=== PATIENT | male | born 1975 | race Caucasian/White ===

== ENCOUNTER 2018-10-29 16:10 | Observation (INO) ==
--- NOTE | 2018-10-29 16:44 | Emergency Department Note ---
Disposition Clinical Impression: Left-sided weakness Chest pain Qualifiers: Chest pain type: unspecified Qualified Code(s): R07.9 - Chest pain, unspecified Disposition: Admitted As Inpatient Condition: Good Referrals: Constantine Serrato MD [Primary Care Provider] - Forms: ED Satisfaction Letter Time of Disposition: 18:07 General Adult HPI - General Stated complaint: Neuro symptoms,CP Time Seen by Provider: 10/29/18 16:20 Source: patient Mode of arrival: ambulatory Limitations: no limitations Nursing Notes Reviewed: Yes Vital Signs Reviewed: Yes - History of Present Illness HPI Narrative: Patient is a 43-year-old male presenting with weakness of the left side. Patient has known history of stroke proximally 1 year ago, since this time he has had residual left-sided weakness in the upper lower extremity as well as a facial droop on the left side with slurred speech. Starting yesterday afternoon, patient began to notice increased slurred speech as well as increased weakness in the left arm and left leg. He states that there is been slight decrease in sensation from his baseline as well on the left side. He does state that he has frequent falls secondary to imbalance following the stroke, last fall was yesterday, and he noticed following this that his symptoms progr essively worsened. Per his mother in the room, she does state that he notes that he has increased slurred speech from his baseline as well as increased left-sided weakness. He also states he has chest pain, described to be sharpshooting on the right side without radiation. He denies any associated shortness of breath. He does have some nausea but no vomiting. No diaphoresis. He denies similar symptoms in the past. He does have an esophageal stent, secondary to residual effects from his stroke approximately one year ago, however he is currently handling solids and liquids without difficulty. - Related Data Previous Rx's Medication Instructions Recorded methylPREDNISolone [Medrol] 4 mg PO TAPER #21 tablet 12/30/15 traMADol [Ultram] 50 mg PO QID PRN #12 tablet 12/30/15 Lisinopril [Zestril] 10 mg PO DAILY #30 tablet 02/17/17 amLODIPine [Norvasc] 10 mg PO DAILY #30 tablet 02/17/17 Allergies Allergy/AdvReac Type Severity Reaction Status Date / Time No Known Allergies Allergy Verified 03/11/15 17:14 All systems ED: reviewed and negative except as stated. Review of Systems: As Per HPI Constitutional: Denies: fever, chills ENT ED: Denies: congestion Cardiovascular: Reports: chest pain. Denies: palpitations, dyspnea on exertion, syncope Respiratory: Denies: cough, dyspnea, wheezes, sputum production Gastrointestinal: Reports: nausea. Denies: abdominal pain, diarrhea Genitourinary: Denies: urgency Musculoskeletal: Denies: back pain Integumentary: Denies: rash Neurological: Reports: weakness, numbness. Denies: headache, paresthesias, confusion Hematological/Lymphatic: Denies: easy bleeding Past Medical History - Past Medical History Attestation: Yes The following information was validated with the patient. Source: patient Medical history: Reports: other (kidney issues, BP issues) Surgical history: Reports: non-contributory Psychiatric history: Reports: no psych history - Social History Smoking Status: Current every day smoker Smokeless Tobacco Status: No Alcohol use: Reports: occasionally Drug use: Reports: none Physical Exam - General Limitations: no limitations General appearance: alert, in no apparent distress - Head Head exam: atraumatic, normocephalic, normal inspection - Eye Eye exam: Present: normal appearance, PERRL, EOMI - ENT ENT exam: normal exam, normal oropharynx, mucous membranes moist - Neck Neck exam: Present: normal inspection, full ROM, trachea midline - Chest Chest inspection: Present: normal inspection, symmetric chest wall rise - Respiratory Respiratory exam: Present: normal lung sounds bilaterally - Cardiovascular Cardiovascular exam: Present: regular rate, normal rhythm, normal heart sounds - Abdominal Exam Abdominal exam: Present: soft, Non-Tender, other (Tube placement to the midepigastric region, appears without erythema or signs of infection). Absent: tenderness, distention, guarding, rebound, rigidity - Extremities Exam Extremities exam: Present: normal inspection, full ROM. Absent: tenderness, pedal edema - Neurological Exam Neurological exam: Present: alert, oriented X3 - Expanded Neurological Exam Patient oriented to: Present: person, place, time Speech: Present: fluid speech Cranial nerves: EOM function (II, III, IV, ): Normal, facial sensation (V): Abnormal Left, facial palsy (VII): Abnormal Left, spinal accessory function (XI): Normal, tongue deviation (XII): Normal Cerebellar function: finger to nose: Abnormal Left (Unable to perform [id number] secondary to weakness on the left side) Motor strength - LUE: 2/5 Motor strength - RUE: 5/5 Motor strength - LLE: 2/5 Motor strength - RLE: 5/5 Upper motor neuron exam: pronator drift: Present on left (Secondary to weakness on the left side) Sensory exam upper extremity: light touch: Abnormal Left (Decreased on the left side) Sensory exam lower extremity: light touch: Abnormal Left (Decreased on the left side) Coma Scale Eye Opening: Spontaneous Coma Scale Motor Response: Obeys Commands Coma Scale Verbal Response: Oriented Coma Scale Total: 15 - Psychiatric Psychiatric exam: Present: normal affect, normal mood - Skin Skin exam: Present: warm, dry, intact, normal color Course Vital Signs Temperature 97.9 F 10/29/18 16:32 Pulse Rate 71 10/29/18 16:32 Respiratory Rate 16 10/29/18 16:32 Blood Pressure 140/96 10/29/18 16:32 O2 Sat by Pulse Oximetry 98 10/29/18 16:32 Temperature 97.9 F 10/29/18 16:32 Pulse Rate 64 10/29/18 18:03 Respiratory Rate 14 10/29/18 18:03 Blood Pressure 132/91 10/29/18 18:03 O2 Sat by Pulse Oximetry 100 10/29/18 18:03 Oxygen Delivery Oxygen Delivery Room Air Medical Decision Making - MDM Narrative Medical decision making narrative: Patient is a 43-year-old male presenting with left-sided weakness. Patient has known history of stroke approximately one year ago with residual left-sided weakness, numbness to the upper, lower extremities as well as the face. Per patient as well as family in the room, patient has had increase in weakness approximately 26 hours ago. On arrival, patient is NIH of 7, feels though this is most likely chronic in nature, as all deficiencies are noted on the left side. Do not have a baseline for comparison. GCS of 15. CBC, BMP as well as chest x-ray and EKG are all within normal limits, no acute ischemic changes were noted. CT of the head shows no acute intracranial changes. Patient has remained stable while here in the ER. Patient is not a TPA candidate. Patient also states he has been having intermittent chest pain, troponin is normal with negative EKG showing no acute ischemic changes. Her troponin will need to be trended. This point in time, further ruminations and evaluation, patient will be admitted to the hospital service. Patient agrees with disposition of dimas ulloa. - Medical Records Medical records reviewed: Yes I reviewed the patient's medical records. - Lab Data Lab results reviewed: Yes I reviewed the patient's lab results. Result diagrams: 10/29/18 17:27 10/29/18 17:09 Lab Results 10/29/18 10/29/18 10/29/18 Range/Units 17:09 17:27 17:27 WBC 11.4 H (4.3-11.1) K/mcL RBC 4.88 (4.19-5.50) M/mcL Hgb 14.9 (12.9-16.9) g/dL Hct 44.3 (37.5-50.1) % MCV 90.8 (83.0-100.0) fL MCH 30.5 (28.0-33.3) pg MCHC 33.6 (31.6-35.5) g/dL RDW 12.2 (11.5-14.5) % Plt Count 232 (140-400) K/mcL MPV 11.5 (9.4-12.4) fL PT 12.4 H (9.4-12.1) Seconds INR 1.1 APTT 30.2 (26.0-36.0) Seconds Sodium 138 (136-145) mEq/L Potassium 3.8 (3.5-5.1) mEq/L Chloride 105 (98-107) mEq/L Carbon Dioxide 24 (23-29) mEq/L BUN 14 (6-20) mg/dL Creatinine 1.23 (0.70-1.30) mg/dL Est GFR ( Amer) > 60 (> 60) Est GFR (Non-Af Amer) > 60 (> 60) BUN/Creatinine Ratio 11 (6-26) Glucose 89 (70-105) mg/dL Calculated Osmolality 286 (280-300) Calcium 9.4 (8.6-10.3) mg/dL Troponin I < 0.03 (< 0.04) ng/mL - Radiology Data Radiology results reviewed: Yes I reviewed the patient's radiology results. Chest X-Ray 10/29/18 16:39 IMPRESSION: No acute cardiopulmonary abnormality. D/ / Flaco Mora MD / Flaco Mora MD Interpreting Provider: Flaco Mora MD Head CT 10/29/18 16:39 IMPRESSION: 1. No acute intracranial abnormality. 2. Chronic findings as above. D/ / Benitez Palafox MD / Benitez Palafox MD Interpreting Provider: Benitez Palafox MD - EKG Data EKG #2 EKG attestation: Yes I reviewed and interpreted this EKG. EKG results narrative: EKG performed at 1654 with ventricular rate of 72, regular rhythm, normal axis, intervals within normal limits, no ST segment elevation, depression, there is T- wave inversion in lead 3, no old EKG for comparison. S.B.A.R. - S.Jeanne.ALatha Situation: Demographics, MOA Background: Presenting Complaint, Relevant PMH, Meds, & Allergies Assessment: Vital Signs, Course and respsone to treatment, Exam Concerns, Patient/Family Expectation, Pertinant Lab Results, Outstanding Labs Recommendation: Barrier(s) to disposition, Recommendation based on pending studies, treatments, or consults S.[email or web address].RChris Report Given to: Dr. Vargas Cosme Repor Time: 18:23 (accepted) NIH Stroke Scale - Level of Consciousness LOC: Alert - LOC Questions LOC Questions: Answers both correctly - LOC Commands LOC Commands: Performs both correctly - Best Gaze Best Gaze: Normal - Visual Visual: No visual loss - Facial Palsy Facial Palsy: Minor asymmetry on smiling, flattened nasolabial fold - Motor Arms Motor Arm-Left: Some effort against gravity, limb drifts to bed Motor Arm-Right: No drift for 10 seconds - Motor Legs Motor Leg-Left: Drift, does NOT hit bed Motor Leg-Right: No drift for 5 seconds - Limb Ataxia Limb Ataxia: Present in ONE limb - Sensory Sensory: Mild to moderate loss, "not as sharp" - Best Language Best Language: No aphasia - Dysarthria Dysarthria: Mild, slurs some words - Extinction and Inattention Extinction and Inattention: Normal - NIHSS Total Score NIHSS Total Score: 7
[2018-10-29 17:41] LABS: Hematocrit 44.3 % (37.5-50.1); Hemoglobin 14.9 g/dL (12.9-16.9); Mean Corpuscular HGB Conc 33.6 g/dL (31.6-35.5); Mean Corpuscular Hemoglobin 30.5 pg (28.0-33.3); Mean Corpuscular Volume 90.8 fL (83.0-100.0); Mean Platelet Volume 11.5 fL (9.4-12.4); Platelet Count 232 K/mcL (140-400); Red Blood Count 4.88 M/mcL (4.19-5.50); Red Cell Distribution Width 12.2 % (11.5-14.5)
--- NOTE | 2018-10-29 17:46 | Emergency Department Note ---
Disposition Clinical Impression: Left-sided weakness, Chest pain Disposition: Admitted As Inpatient Condition: Good Referrals: Constantine Serrato MD [Primary Care Provider] - Forms: ED Satisfaction Letter General Adult HPI - General Chief complaint: ED Neuro Symptoms/Deficit Stated complaint: Neuro symptoms,CP Time Seen by Provider: 10/29/18 16:20 Source: patient Mode of arrival: ambulatory Limitations: no limitations - History of Present Illness Pain Scale: 0 - Related Data Previous Rx's Medication Instructions Recorded methylPREDNISolone [Medrol] 4 mg PO TAPER #21 tablet 12/30/15 traMADol [Ultram] 50 mg PO QID PRN #12 tablet 12/30/15 Lisinopril [Zestril] 10 mg PO DAILY #30 tablet 02/17/17 amLODIPine [Norvasc] 10 mg PO DAILY #30 tablet 02/17/17 Allergies Allergy/AdvReac Type Severity Reaction Status Date / Time No Known Allergies Allergy Verified 03/11/15 17:14 Constitutional: Denies: fever, chills ENT ED: Denies: congestion Cardiovascular: Reports: chest pain. Denies: palpitations, dyspnea on exertion, syncope Respiratory: Denies: cough, dyspnea, wheezes, sputum production Gastrointestinal: Reports: nausea. Denies: abdominal pain, diarrhea Genitourinary: Denies: urgency Musculoskeletal: Denies: back pain Integumentary: Denies: rash Neurological: Reports: weakness, numbness. Denies: headache, paresthesias, confusion Hematological/Lymphatic: Denies: easy bleeding Past Medical History - Past Medical History Medical history: Reports: other (kidney issues, BP issues) Surgical history: Reports: non-contributory Psychiatric history: Reports: no psych history - Social History Smoking Status: Current every day smoker Smokeless Tobacco Status: No Alcohol use: Reports: occasionally Drug use: Reports: none Physical Exam - General Limitations: no limitations General appearance: alert, in no apparent distress Course Vital Signs Temperature 97.9 F 10/29/18 16:32 Pulse Rate 71 10/29/18 16:32 Respiratory Rate 16 10/29/18 16:32 Blood Pressure 140/96 10/29/18 16:32 O2 Sat by Pulse Oximetry 98 10/29/18 16:32 Temperature 97.9 F 10/29/18 16:32 Pulse Rate 64 10/29/18 18:03 Respiratory Rate 14 10/29/18 18:03 Blood Pressure 132/91 10/29/18 18:03 O2 Sat by Pulse Oximetry 100 10/29/18 18:03 Oxygen Delivery Oxygen Delivery Room Air Medical Decision Making - Lab Data Result diagrams: 10/29/18 17:27 10/29/18 17:09 Lab Results 10/29/18 10/29/18 10/29/18 Range/Units 17:09 17:27 17:27 WBC 11.4 H (4.3-11.1) K/mcL RBC 4.88 (4.19-5.50) M/mcL Hgb 14.9 (12.9-16.9) g/dL Hct 44.3 (37.5-50.1) % MCV 90.8 (83.0-100.0) fL MCH 30.5 (28.0-33.3) pg MCHC 33.6 (31.6-35.5) g/dL RDW 12.2 (11.5-14.5) % Plt Count 232 (140-400) K/mcL MPV 11.5 (9.4-12.4) fL PT 12.4 H (9.4-12.1) Seconds INR 1.1 APTT 30.2 (26.0-36.0) Seconds Sodium 138 (136-145) mEq/L Potassium 3.8 (3.5-5.1) mEq/L Chloride 105 (98-107) mEq/L Carbon Dioxide 24 (23-29) mEq/L BUN 14 (6-20) mg/dL Creatinine 1.23 (0.70-1.30) mg/dL Est GFR ( Amer) > 60 (> 60) Est GFR (Non-Af Amer) > 60 (> 60) BUN/Creatinine Ratio 11 (6-26) Glucose 89 (70-105) mg/dL Calculated Osmolality 286 (280-300) Calcium 9.4 (8.6-10.3) mg/dL Troponin I < 0.03 (< 0.04) ng/mL Attestation Statement - Attestation Attestation: I examined this patient and my medical decision-making was reviewed with the Resident Physician. I agree with the documented findings, disposition and treatment plan as described except to the extent set forth below. Patient to the ED with left-sided weakness and slurred speech. Onset yesterday, over 24 hours ago. Patient reports that he feels weaker than normal. Patient's had a prior stroke with left-sided weakness. On exam he is in no acute distress. He does have a drift to the right arm and leg. Sensory deficit as well. It is unclear how chronic or acute this is. Plan. Stroke workup. His NIH scale is 7. We will check CT head basic labs. Symptom onset over 24 hours ago. He is not a TPA candidate. Likely admission. Workup unremarkable. Patient admitted for further neuro eval. Chest X-Ray 10/29/18 16:39 IMPRESSION: No acute cardiopulmonary abnormality. D/ / Flaco Mora MD / Flaco Mora MD Interpreting Provider: Flaco Mora MD Head CT 10/29/18 16:39 IMPRESSION: 1. No acute intracranial abnormality. 2. Chronic findings as above. D/ / Benitez Palafox MD / Benitez Palafox MD Interpreting Provider: Benitez Palafox MD
[2018-10-29 17:49] LABS: INR 1.1; Prothrombin Time 12.4 Seconds (9.4-12.1)
[2018-10-29 17:52] LABS: Activated Partial Thrombo Time 30.2 Seconds (26.0-36.0)
[2018-10-29 17:54] LABS: BUN/Creatinine Ratio 11 (6-26); Blood Urea Nitrogen 14 mg/dL (6-20); Calcium 9.4 mg/dL (8.6-10.3); Carbon Dioxide 24 mEq/L (23-29); Chloride 105 mEq/L (98-107); Glucose 89 mg/dL (70-105); Osmolality,Calculated 286 (280-300); Potassium 3.8 mEq/L (3.5-5.1); Sodium 138 mEq/L (136-145); eGFR For Non-African Americans > 60 (> 60)
[2018-10-29 17:55] LABS: Troponin I < 0.03 ng/mL (< 0.04)
[2018-10-30] MEDS ORDERED: Naloxone 0.4 MG/ML INJ IVP PRN (04:32)
[2018-10-30] MEDS ORDERED: 0.9 % Sodium Chloride 1,000 ML IVC ONE (04:36)
[2018-10-30] MEDS: *HR* Heparin 5,000 UNIT/ML VIAL SQ SCH ×2 (05:02→17:40)
[2018-10-30 05:44] LABS: Hematocrit 43.1 % (37.5-50.1); Hemoglobin 14.5 g/dL (12.9-16.9); Mean Corpuscular HGB Conc 33.6 g/dL (31.6-35.5); Mean Corpuscular Hemoglobin 30.5 pg (28.0-33.3); Mean Corpuscular Volume 90.7 fL (83.0-100.0); Mean Platelet Volume 11.5 fL (9.4-12.4); Platelet Count 220 K/mcL (140-400); Red Blood Count 4.75 M/mcL (4.19-5.50)
[2018-10-30 06:06] LABS: BUN/Creatinine Ratio 11 (6-26); Blood Urea Nitrogen 15 mg/dL (6-20); Calcium 9.5 mg/dL (8.6-10.3); Carbon Dioxide 25 mEq/L (23-29); Chloride 103 mEq/L (98-107); Glucose 109 mg/dL (70-105); Osmolality,Calculated 287 (280-300); Potassium 3.8 mEq/L (3.5-5.1); Sodium 138 mEq/L (136-145); Troponin I < 0.03 ng/mL (< 0.04); eGFR For Non-African Americans 57 (> 60)
--- NOTE | 2018-10-30 07:18 | Internal Med History&Physical ---
Date of Encounter: 10/30/18 Time of Encounter: 03:59 Internal Medicine - H&P: HPI Chief complaint: CVA Admitted From: Emergency Dept Plans for Post Hospital Care: Home History of present illness: Mr. Kearns is a 43 year old male Patient presented to the ER with left sided weakness and left sided facial droop. He has a significant history of left sided weakness from previous stroke about 1 year ago, however his noticed that he was slurring his speech more than he typically dose, and he confirmed that he had decreased sensation on the left side. He has experienced falls due to his weakness as well, but denies hitting his head. In the ER patient's initial vital signs were within normal limits, CBC and BMP also did not reveal any acute abnormalities. Chest x-ray showed no acute abnormality, head CT was also negative for acute intracranial abnormality. He does have chronic changes as detailed below. The ER did not call stroke alert, as patient's symptoms had occurred greater than 24 hours prior to presentation. He was admitted to the hospital floor for further management. Upon my evaluation, patient confirms the history above. I asked him about the chest pain the he had reported to the ER, and he stated that he felt that it was more of an acid reflux type pain. The pain did not radiate. He otherwise denied chest pain, abdominal pain, nausea, vomiting, diarrhea and constipation. He has a G-tube that was placed after his previous stroke but it is not in use. He says that he has a soreness feeling around the site. It is to be removed on December 03. Nursing attempted bed side dysphagia screen which the patient failed. He is a full code. I asked the patient about his family medical history. He stated that both sides of his family struggle with alcoholism, and his father's side of the family also dealt with diabetes and heart attacks. Past Med Surg Social Fam HX - Past Medical History Medical history: CVA, hyperlipidemia, other Additional medical history: Peg Tube, wears brace on left leg Psychiatric history: no psych history - Past Surgical History Surgical History: non-contributory Additional surgical history: PEG placement - Social History Smoking Status: Current every day smoker Smokeless Tobacco Status: No Alcohol use: occasionally Drug use: none - Family History Mother Living Status: Still Living Hx Family Autoimmune Disorders: Yes (RA) Internal Medicine - H&P: Meds methylPREDNISolone [Medrol] 4 mg PO TAPER #21 tablet 12/30/15 [Rx] traMADol [Ultram] 50 mg PO QID PRN #12 tablet 12/30/15 [Rx] Lisinopril [Zestril] 10 mg PO DAILY #30 tablet 02/17/17 [Rx] amLODIPine [Norvasc] 10 mg PO DAILY #30 tablet 02/17/17 [Rx] Allergy/AdvReac Type Severity Reaction Status Date / Time No Known Allergies Allergy Verified 03/11/15 17:14 All Systems PM: A 10-system review of systems was performed and is negative for pertinent findings except as documented above in the HPI. - Constitutional Vitals: Temp Pulse Resp BP Pulse Ox 98.5 F 72 15 137/99 97 10/30/18 07:01 10/30/18 07:01 10/30/18 07:01 10/30/18 07:01 10/30/18 07:01 General appearance: Present: cooperative, A&O X 3, pleasant, no acute distress, answers questions appropriately Exam: - - Head Head exam: Present: normal inspection - Eye Eye exam: Present: EOMI, normal appearance - Neck Neck exam general surgery: Present: full ROM. Absent: tenderness - Respiratory Respiratory exam: Present: CTAB. Absent: rales, respiratory distress, rhonchi, wheezes - Cardiovascular Cardiovascular exam: Present: RRR. Absent: diastolic murmur, systolic murmur - GI/Abdominal GI/Abdominal exam: Present: normal bowel sounds, soft. Absent: tenderness - Extremities Exam Extremities exam: Present: warm, radial pulses palpable and symmetrical. Absent: pedal edema, tenderness - Neurological Exam Neurological exam: Present: motor sensory deficit, facial droop. Absent: no focal deficits, strengths equal and symetr throughout, speech deficit Additional comments: Patient's left upper and lower extremity weaker than right at baseline, patient has new left sided facial droop however. Denies decreased sensation. - Skin Skin exam: Present: dry, normal color, warm Internal Med - H&P Results - Labs CBC & Chem 7: 10/30/18 05:31 10/30/18 05:31 Labs: Short CBC 10/29/18 10/30/18 Range/Units 17:27 05:31 WBC 11.4 H 10.3 (4.3-11.1) K/mcL Hgb 14.9 14.5 (12.9-16.9) g/dL Hct 44.3 43.1 (37.5-50.1) % Plt Count 232 220 (140-400) K/mcL BMP 10/29/18 10/30/18 17:09 05:31 Sodium 138 138 Potassium 3.8 3.8 Chloride 105 103 Carbon Dioxide 24 25 BUN 14 15 Creatinine 1.23 1.38 H Glucose 89 109 H Calcium 9.4 9.5 Cardiac Enzymes 10/29/18 10/30/18 Range/Units 17:09 05:31 Troponin I < 0.03 < 0.03 (< 0.04) ng/mL - Impressions ITS Impressions Chest X-Ray 10/29/18 16:39 IMPRESSION: No acute cardiopulmonary abnormality. D/ / Flaco Mora MD / Flaco Mora MD Interpreting Provider: Flaco Mora MD Head CT 10/29/18 16:39 IMPRESSION: 1. No acute intracranial abnormality. 2. Chronic findings as above. D/ / Benitez Palafox MD / Benitez Palafox MD Interpreting Provider: Benitez Palafox MD - Assessment and Plan (1) Left-sided weakness Current Visit: Yes Status: Acute Assessment and plan: Patient also had left sided facial droop. Decreased sensation on left side seems to be improving at time of my exam. Patient has left sided weakness compared to right at baseline. MRI in AM NPO until speech therapy can evaluate the patient PT and OT consultation. Consider neurology consult pending findings from above. (2) Dysphagia Current Visit: Yes Status: Acute Assessment and plan: As above, patient failed dysphagia screen. Speech therapy today NPO for now. Qualifiers: Dysphagia type: unspecified Qualified Code(s): R13.10 - Dysphagia, unspecified (3) Chest pain Current Visit: Yes Status: Acute Assessment and plan: Patient describes his pain as an acid reflux type pain, initial troponin was negative as well. No EKG findings suggestive of STEMI. Continue to trend troponins Cardiac monitoring Famotidine PRN Qualifiers: Chest pain type: unspecified Qualified Code(s): R07.9 - Chest pain, unspecified (4) DVT prophylaxis Current Visit: Yes Status: Acute Assessment and plan: Heparin subcutaneous - Time Spent With Patient Total time spent is greater than 50% in coordination of care (as documented) at patient's floor/unit and/or counseling patient: Greater than 35 minutes
[2018-10-30] MEDS ORDERED: Famotidine 20 MG TABLET PO PRN (07:42)
--- NOTE | 2018-10-30 11:51 | Event Note ---
Date of Encounter: 10/30/18 Time of Encounter: 08:00 Patient with prior history of CVA was admitted for left-sided weakness and slurring of speech. On review of his medication, it is noted that he is not on aspirin or statin or any anticoagulants. Pt reports resolution of his symptoms upon presentation. Will check MRI brain and start ASA/statin. Echocardiogram. PT/OT/Speech eval and anticipate d/c tomorrow.
[2018-10-30] MEDS ORDERED: traMADol 50 MG TABLET PO PRN (17:26)
[2018-10-30] MEDS ORDERED: *HR* OxyCODONE Immed Rel 5 MG TABLET PO PRN (17:26)
[2018-10-30] MEDS ORDERED: Acetaminophen 325 MG TABLET PO PRN (17:26)
[2018-10-30] MEDS ORDERED: Melatonin 3 MG TABLET PO PRN (19:57)
[2018-10-30] MEDS ORDERED: ALPRAZolam 0.5 MG TABLET PO ONE (22:36)
[2018-10-31] MEDS: *HR* Heparin 5,000 UNIT/ML VIAL SQ SCH (05:24)
[2018-10-31 07:36] VITALS: BP 121/84
[2018-10-31] MEDS ORDERED: Aspirin Enteric Coated 81 MG Tablet PO SCH (09:00)
--- NOTE | 2018-10-31 09:12 | Discharge Summary ---
- NOTES TO OUTPATIENT PROVIDER Notes to Outpatient Provider: Follow-up with neurology as an outpatient Date of Encounter: 10/31/18 Time of Encounter: 07:15 - Discharge Diagnosis (1) CVA (cerebral vascular accident) Priority: Primary Status: Acute Qualifiers: CVA mechanism: unspecified Qualified Code(s): I63.9 - Cerebral infarction, unspecified (2) Left-sided weakness Priority: Secondary Status: Acute Hospital course: Mr. Kearns is a 43 year old male with history of CVA and HTN was admitted for L sided weakness. For some reason, pt was not on any ASA, statin, or anticoagulants for his stroke. MRI showed left anterior pontine infarct. He was started on ASA, statin, seen by PT/OT who deemed that he is safe for home, and was discharged with Neurology follow up as outpatient. Discharge discussed with: patient, nurse - Time Spent with Patient Total time spent providing and/or coordinating discharge services: 28 mins - Discharge Medications Prescriptions: New Aspirin Enteric Coated [Aspirin EC] 81 mg PO DAILY #30 tablet. Atorvastatin [Lipitor] 40 mg PO HS #30 tablet Continue ALPRAZolam [Xanax 0.5 MG Tablet] 0.5 mg PO TID PRN PRN Reason: Anxiety Famotidine [Pepcid] 20 mg PO BID FLUoxetine HCl [Fluoxetine HCl] 20 mg PO DAILY Folic Acid 1,000 mcg PO DAILY Gabapentin [Neurontin] 100 mg PO BID Lisinopril [Zestril] 40 mg PO DAILY Melatonin 9 mg PO HS Omeprazole [PriLOSEC] 20 mg PO BID Propranolol [Inderal] 10 mg PO TID Sucralfate [Carafate] 10 ml PO TID Thiamine HCl [Vitamin B-1] 100 mg PO DAILY amLODIPine [Norvasc] 5 mg PO DAILY Bacitracin OINT [Ak-Tracin] 1 appl TP BID Home Medications: ALPRAZolam [Xanax 0.5 MG Tablet] 0.5 mg PO TID PRN 10/30/18 [History] Bacitracin OINT [Ak-Tracin] 1 appl TP BID 10/30/18 [History] FLUoxetine HCl [Fluoxetine HCl] 20 mg PO DAILY 10/30/18 [History] Famotidine [Pepcid] 20 mg PO BID 10/30/18 [History] Folic Acid 1,000 mcg PO DAILY 10/30/18 [History] Gabapentin [Neurontin] 100 mg PO BID 10/30/18 [History] Lisinopril [Zestril] 40 mg PO DAILY 10/30/18 [History] Melatonin 9 mg PO HS 10/30/18 [History] Omeprazole [PriLOSEC] 20 mg PO BID 10/30/18 [History] Propranolol [Inderal] 10 mg PO TID 10/30/18 [History] Sucralfate [Carafate] 10 ml PO TID 10/30/18 [History] Thiamine HCl [Vitamin B-1] 100 mg PO DAILY 10/30/18 [History] amLODIPine [Norvasc] 5 mg PO DAILY 10/30/18 [History] Aspirin Enteric Coated [Aspirin EC] 81 mg PO DAILY #30 tablet. 10/31/18 [Rx] Atorvastatin [Lipitor] 40 mg PO HS #30 tablet 10/31/18 [Rx] Allergies/Adverse Reactions: Allergy/AdvReac Type Severity Reaction Status Date / Time No Known Allergies Allergy Verified 10/30/18 22:13 Date of admission: 10/29/18 19:59 Primary care physician: Constantine Serrato MD Consults: 10/30/18 04:33 Consult to Physical Therapy [CONS] Routine Comment: Evaluate, develop and implement POC Reason for Consult: History of left sided stroke, presented with worsened left sided weakness Does patient have active BEDREST order?: No Is patient medically & hemodynamically stable?: Yes - Constitutional Vitals: Temp Pulse Resp BP Pulse Ox 98.5 F 70 16 121/84 97 10/31/18 07:26 10/31/18 07:26 10/31/18 07:26 10/31/18 07:26 10/31/18 07:26 General appearance: Present: cooperative, A&O X 3, pleasant, no acute distress, answers questions appropriately Exam: General: Alert and oriented, not in acute distress. Cardiovascular:Normal S1 & S2, No JVD. Pulse regular. Lungs: clear to auscultation, no wheezes/rales Abdomen:Soft, non-tender, no rigidity. Extremities:No deformity or swelling Neurological: L UE/LE weakness which is close to his baseline, unable to appreciate L facial droop documented in H&P - Patient Status Disposition: Home, Self-Care Condition: Good Functional capacity at discharge: independent ambulation Overall status at discharge: patient is progressing back to baseline - Discharge Instructions Follow Up With: Constantine Serrato MD [Primary Care Provider] - Verito Gaviria MD [Partnered Physician] - Additional Instructions: Started on ASA, statin. Follow up with Neurology as outpatient - Diet and Activity Activity: resume usual activities as tolerated Diet: regular diet
--- NOTE | 2018-11-01 09:39 | Electrocardiograph Report ---
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
== END 2018-10-31 10:30 | disposition home or self-care (01) ==
LOC: 3ANU 16:10 → EMEROOARM 16:10 → SUATTDRO 19:59 → 3ANU 20:41
PROVIDERS: ADMIT Internal Medicine Nephrology; ATTEND Internal Medicine

== ENCOUNTER 2021-11-07 21:15 | Inpatient (IN) ==
[2021-11-07] MEDS ORDERED: 0.9 % Sodium Chloride 1,000 ML IV ONE (21:32)
[2021-11-07] MEDS ORDERED: Piperacillin/Tazobactam 3.375 GM in 0.9 % Sodium Chloride Mini Bag 100 ML IVP ONE (21:32)
[2021-11-07] MEDS ORDERED: Vancomycin 1,500 MG/265 ML IV.SOLN IVPB ONE (21:32)
[2021-11-07 22:00] LABS: Basophils # 0.1 K/mcL (0.0-0.2); Basophils % 0.5 %; Eosinophils # 0.1 K/mcL (0.0-0.6); Eosinophils % 0.9 %; Hemoglobin 14.8 g/dL (12.9-16.9); Immature Granulocytes % 2.3 % (0-4); Lymphocytes # 1.9 K/mcL (0.6-4.6); Lymphocytes % 12.6 %; Mean Corpuscular HGB Conc 32.9 g/dL (31.6-35.5); Mean Corpuscular Hemoglobin 29.9 pg (28.0-33.3); Mean Corpuscular Volume 90.9 fL (83.0-100.0); Neutrophils # 10.6 K/mcL (1.6-8.9); Platelet Count 395 K/mcL (140-400); Red Blood Count 4.95 M/mcL (4.19-5.50); Red Cell Distribution Width 12.7 % (11.5-14.5); Segmented Neutrophils % 70.7 %
[2021-11-07 22:20] LABS: Alanine Aminotransferase 22 Units/L (7-52); Albumin 3.5 g/dL (3.5-5.7); Albumin/Globulin Ratio 0.9 (1.1-2.2); Alkaline Phosphatase 96 Units/L (34-104); Aspartate Amino Transferase 18 Units/L (13-39); BUN/Creatinine Ratio 13 (6-26); Bilirubin,Total 0.6 mg/dL (0.3-1.0); Blood Urea Nitrogen 18 mg/dL (6-20); C-Reactive Protein 200 mg/L (Less than 10); Calcium 8.8 mg/dL (8.6-10.3); Carbon Dioxide 26 mEq/L (23-29); Chloride 98 mEq/L (98-107); Globulin 3.9 g/dL (2.4-3.5); Glucose 70 mg/dL (70-105); Osmolality,Calculated 278 (280-300); Potassium 3.5 mEq/L (3.5-5.1); Sodium 134 mEq/L (136-145); Total Protein 7.4 g/dL (6.4-8.9); eGFR For African Americans > 60 (> 60); eGFR For Non-African Americans 54 (> 60)
[2021-11-07] MEDS ORDERED: Isovue-370 500 ML BOTTLE IVP ONE (22:39)
[2021-11-07] MEDS ORDERED: Acetaminophen 325 MG TABLET PO PRN (22:58)
[2021-11-07] MEDS ORDERED: Ondansetron ODT 4 MG TAB.RAPDIS SL PRN (22:58)
[2021-11-07] MEDS ORDERED: Melatonin 3 MG TABLET PO PRN (22:58)
[2021-11-07] MEDS ORDERED: Naloxone 0.4 MG/ML INJ IVP PRN (22:58)
[2021-11-07] MEDS ORDERED: *HR* Heparin 5,000 UNIT/ML VIAL SQ SCH (23:15)
[2021-11-08 03:00] LABS: Bilirubin,Urine Negative (Negative); Blood,Urine Negative (Negative); Clarity,Urine Clear (Clear); Color,Urine Light-Yellow (Yellow); Glucose,Urine (UA) Normal (Normal); Ketones,Urine Negative (Negative); Leukocyte Esterase,Urine Trace (Negative); Nitrite,Urine Negative (Negative); PH,Urine 6.5 pH Units (5.0-8.0); Protein,Urine Trace mg/dL (Neg-Trace); RBC,Urine 0-3 per hpf (0-3); Specific Gravity,Urine > 1.030 (1.010-1.025); Squamous Epithelial Cell,Urine Few per hpf (None-Few)
[2021-11-08 03:08] LABS: Protein/Creatinine Ratio,Urine 0.8 mg/mg (0.00-0.20); Sodium, Urine 84.1 mEq/L
[2021-11-08 03:51] LABS: Basophils % 0.2 %; Eosinophils # 0.1 K/mcL (0.0-0.6); Eosinophils % 0.7 %; Hemoglobin 13.5 g/dL (12.9-16.9); Immature Granulocytes % 1.9 % (0-4); Lymphocytes # 1.6 K/mcL (0.6-4.6); Lymphocytes % 11.4 %; Mean Corpuscular HGB Conc 33.8 g/dL (31.6-35.5); Mean Corpuscular Hemoglobin 29.7 pg (28.0-33.3); Mean Corpuscular Volume 88.1 fL (83.0-100.0); Monocytes # 1.6 K/mcL (0.0-1.3); Monocytes % 11.2 %; Neutrophils # 10.5 K/mcL (1.6-8.9); Platelet Count 405 K/mcL (140-400); Red Blood Count 4.54 M/mcL (4.19-5.50); Red Cell Distribution Width 12.6 % (11.5-14.5); Segmented Neutrophils % 74.6 %
[2021-11-08 03:58] LABS: INR 1.3; Prothrombin Time 14.7 Seconds (9.4-12.1)
[2021-11-08 04:01] LABS: Activated Partial Thrombo Time 31.2 Seconds (26.0-36.0)
[2021-11-08 04:10] LABS: BUN/Creatinine Ratio 12 (6-26); Blood Urea Nitrogen 15 mg/dL (6-20); Calcium 8.3 mg/dL (8.6-10.3); Carbon Dioxide 23 mEq/L (23-29); Chloride 100 mEq/L (98-107); Chol/HDL Ratio 3.5 (0-4.9); Cholesterol 73 mg/dL (< 200); Glucose 104 mg/dL (70-105); HDL Cholesterol 21 mg/dL (40-59); LDL Cholesterol,Calculated 41 mg/dL (< 100); Magnesium 1.7 mg/dL (1.6-2.6); Osmolality,Calculated 277 (280-300); Phosphorous 3.5 mg/dL (2.7-4.5); Potassium 3.7 mEq/L (3.5-5.1); Sodium 133 mEq/L (136-145); Triglycerides 53 mg/dL (< 150); eGFR For African Americans > 60 (> 60); eGFR For Non-African Americans > 60 (> 60)
[2021-11-08] MEDS ORDERED: Ipratropium/Albuterol Neb 3 ML IH PRN (04:22)
[2021-11-08 05:12] LABS: Estimated Average Glucose 103 mg/dl; Hemoglobin A1C 5.2 %
[2021-11-08] MEDS: *HR* Heparin 5,000 UNIT/ML VIAL SQ SCH ×3 (06:02→20:22)
[2021-11-08] MEDS ORDERED: amLODIPine 5 MG TABLET PO SCH (09:00)
[2021-11-08] MEDS: Vancomycin 1,250 MG/262.5 ML IV.SOLN IVPB SCH ×2 (09:59→21:54)
[2021-11-08] MEDS: Piperacillin/Tazobactam 3.375 GM in 0.9 % Sodium Chloride Mini Bag 100 ML IVPB SCH ×2 (09:59→15:33)
[2021-11-08] MEDS: Aspirin Enteric Coated 81 MG Tablet PO SCH (10:00)
[2021-11-08] MEDS: Nicotine 21 MG PATCH.TD24 TD SCH (10:00)
[2021-11-08] MEDS: Lactobacillus 1 EACH CAP.SPRINK PO SCH ×2 (10:00→20:22)
[2021-11-08] MEDS: 0.9 % Sodium Chloride 1,000 ML IVC SCH (12:12)
[2021-11-08 13:32] LABS: Amphetamine Screen,Urine Positive ng/mL (Cutoff=1000); Barbiturate Screen,Urine Negative ng/mL (Cutoff=200); Benzodiazepines Screen,Urine Negative ng/mL (Cutoff=200); Cannabinoid Screen,Urine Negative ng/mL (Cutoff = 50); Cocaine Screen,Urine Negative ng/mL (Cutoff= 300); Opiate Screen,Urine Negative ng/mL (Cutoff=300); Phencyclidine Screen,Urine Negative ng/mL (Cutoff=25)
[2021-11-08] MEDS ORDERED: amLODIPine 5 MG TABLET PO ONE (13:39)
[2021-11-08] MEDS ORDERED: *HR* Labetalol 20 MG/4 ML SYRINGE IVP ONE (13:40)
[2021-11-08] MEDS ORDERED: lisinopriL 20 MG TABLET PO SCH (13:45)
[2021-11-08] MEDS ORDERED: niCARdipine 20 MG/200 ML MLS IVC SCH (21:00)
[2021-11-09] MEDS: Piperacillin/Tazobactam 3.375 GM in 0.9 % Sodium Chloride Mini Bag 100 ML IVPB SCH ×3 (00:27→15:23)
[2021-11-09] MEDS: 0.9 % Sodium Chloride 1,000 ML IVC SCH ×2 (00:51→15:21)
[2021-11-09 02:27] LABS: Basophils # 0.1 K/mcL (0.0-0.2); Basophils % 0.6 %; Eosinophils # 0.2 K/mcL (0.0-0.6); Eosinophils % 1.5 %; Hematocrit 38.8 % (37.5-50.1); Hemoglobin 13.3 g/dL (12.9-16.9); Immature Granulocytes % 4.4 % (0-4); Lymphocytes # 1.8 K/mcL (0.6-4.6); Lymphocytes % 16.7 %; Mean Corpuscular HGB Conc 34.3 g/dL (31.6-35.5); Mean Corpuscular Hemoglobin 30.3 pg (28.0-33.3); Mean Corpuscular Volume 88.4 fL (83.0-100.0); Mean Platelet Volume 10.7 fL (9.4-12.4); Monocytes # 1.2 K/mcL (0.0-1.3); Monocytes % 10.9 %; Neutrophils # 7.1 K/mcL (1.6-8.9); Platelet Count 472 K/mcL (140-400); Red Blood Count 4.39 M/mcL (4.19-5.50); Red Cell Distribution Width 12.6 % (11.5-14.5); Segmented Neutrophils % 65.9 %; White Blood Count 10.8 K/mcL (4.3-11.1)
[2021-11-09 02:47] LABS: BUN/Creatinine Ratio 11 (6-26); Blood Urea Nitrogen 12 mg/dL (6-20); Calcium 8.5 mg/dL (8.6-10.3); Carbon Dioxide 21 mEq/L (23-29); Chloride 103 mEq/L (98-107); Glucose 95 mg/dL (70-105); Magnesium 1.8 mg/dL (1.6-2.6); Osmolality,Calculated 280 (280-300); Phosphorous 3.2 mg/dL (2.7-4.5); Potassium 3.6 mEq/L (3.5-5.1); Sodium 135 mEq/L (136-145); eGFR For African Americans > 60 (> 60); eGFR For Non-African Americans > 60 (> 60)
[2021-11-09] MEDS: *HR* Heparin 5,000 UNIT/ML VIAL SQ SCH ×3 (05:46→21:22)
[2021-11-09] MEDS: Nicotine 21 MG PATCH.TD24 TD SCH (08:01)
[2021-11-09] MEDS: Lactobacillus 1 EACH CAP.SPRINK PO SCH ×2 (08:02→21:21)
[2021-11-09] MEDS: lisinopriL 20 MG TABLET PO SCH (08:03)
[2021-11-09] MEDS: Aspirin Enteric Coated 81 MG Tablet PO SCH (08:03)
[2021-11-09] MEDS: amLODIPine 5 MG TABLET PO SCH (08:49)
[2021-11-09] MEDS ORDERED: amLODIPine 5 MG TABLET PO SCH (09:00)
[2021-11-09] MEDS: Vancomycin 1,750 MG/517.5 ML IV.SOLN IVPB SCH ×2 (11:24→23:50)
[2021-11-10] MEDS: Piperacillin/Tazobactam 3.375 GM in 0.9 % Sodium Chloride Mini Bag 100 ML IVPB SCH ×2 (00:31→08:22)
[2021-11-10] MEDS: *HR* Heparin 5,000 UNIT/ML VIAL SQ SCH ×3 (05:06→20:07)
[2021-11-10] MEDS: 0.9 % Sodium Chloride 1,000 ML IVC SCH ×2 (05:06→18:17)
[2021-11-10 07:00] LABS: Basophils # 0.1 K/mcL (0.0-0.2); Basophils % 0.5 %; Eosinophils # 0.2 K/mcL (0.0-0.6); Eosinophils % 1.4 %; Hematocrit 41.9 % (37.5-50.1); Immature Granulocytes % 2.7 % (0-4); Lymphocytes # 1.6 K/mcL (0.6-4.6); Lymphocytes % 14.4 %; Mean Corpuscular HGB Conc 33.4 g/dL (31.6-35.5); Mean Corpuscular Hemoglobin 29.5 pg (28.0-33.3); Mean Corpuscular Volume 88.4 fL (83.0-100.0); Mean Platelet Volume 10.6 fL (9.4-12.4); Monocytes # 0.8 K/mcL (0.0-1.3); Monocytes % 7.5 %; Neutrophils # 8.1 K/mcL (1.6-8.9); Platelet Count 511 K/mcL (140-400); Red Blood Count 4.74 M/mcL (4.19-5.50); Red Cell Distribution Width 12.5 % (11.5-14.5); Segmented Neutrophils % 73.5 %
[2021-11-10 07:17] LABS: BUN/Creatinine Ratio 10 (6-26); Blood Urea Nitrogen 11 mg/dL (6-20); Calcium 8.8 mg/dL (8.6-10.3); Carbon Dioxide 21 mEq/L (23-29); Chloride 102 mEq/L (98-107); Glucose 122 mg/dL (70-105); Osmolality,Calculated 277 (280-300); Potassium 3.9 mEq/L (3.5-5.1); Sodium 133 mEq/L (136-145); eGFR For African Americans > 60 (> 60); eGFR For Non-African Americans > 60 (> 60)
[2021-11-10] MEDS: Aspirin Enteric Coated 81 MG Tablet PO SCH (08:22)
[2021-11-10] MEDS: Nicotine 21 MG PATCH.TD24 TD SCH ×2 (08:22→08:34)
[2021-11-10] MEDS: Lactobacillus 1 EACH CAP.SPRINK PO SCH ×2 (08:23→20:07)
[2021-11-10] MEDS: amLODIPine 5 MG TABLET PO SCH (08:23)
[2021-11-10] MEDS: lisinopriL 20 MG TABLET PO SCH (08:24)
[2021-11-10] MEDS: Doxycycline 100 MG CAPSULE PO SCH (20:06)
[2021-11-11 03:15] LABS: Basophils # 0.1 K/mcL (0.0-0.2); Basophils % 0.7 %; Eosinophils # 0.2 K/mcL (0.0-0.6); Eosinophils % 1.6 %; Hematocrit 44.7 % (37.5-50.1); Immature Granulocytes % 3.6 % (0-4); Lymphocytes # 2.4 K/mcL (0.6-4.6); Lymphocytes % 19.1 %; Mean Corpuscular HGB Conc 33.6 g/dL (31.6-35.5); Mean Corpuscular Hemoglobin 29.8 pg (28.0-33.3); Mean Corpuscular Volume 88.9 fL (83.0-100.0); Mean Platelet Volume 10.8 fL (9.4-12.4); Monocytes # 0.9 K/mcL (0.0-1.3); Monocytes % 7.4 %; Neutrophils # 8.5 K/mcL (1.6-8.9); Platelet Count 538 K/mcL (140-400); Red Blood Count 5.03 M/mcL (4.19-5.50); Red Cell Distribution Width 12.7 % (11.5-14.5); Segmented Neutrophils % 67.6 %; White Blood Count 12.6 K/mcL (4.3-11.1)
[2021-11-11 03:31] LABS: BUN/Creatinine Ratio 13 (6-26); Blood Urea Nitrogen 16 mg/dL (6-20); Calcium 8.9 mg/dL (8.6-10.3); Carbon Dioxide 20 mEq/L (23-29); Chloride 106 mEq/L (98-107); Glucose 86 mg/dL (70-105); Osmolality,Calculated 278 (280-300); Potassium 4.1 mEq/L (3.5-5.1); Sodium 134 mEq/L (136-145); eGFR For African Americans > 60 (> 60); eGFR For Non-African Americans > 60 (> 60)
[2021-11-11] MEDS: 0.9 % Sodium Chloride 1,000 ML IVC SCH (07:53)
[2021-11-11] MEDS: *HR* Heparin 5,000 UNIT/ML VIAL SQ SCH ×3 (07:54→21:18)
[2021-11-11] MEDS: Lactobacillus 1 EACH CAP.SPRINK PO SCH ×2 (07:57→21:17)
[2021-11-11] MEDS: Nicotine 21 MG PATCH.TD24 TD SCH (07:57)
[2021-11-11] MEDS: Aspirin Enteric Coated 81 MG Tablet PO SCH (07:58)
[2021-11-11] MEDS: Doxycycline 100 MG CAPSULE PO SCH ×2 (07:58→21:18)
[2021-11-11] MEDS: lisinopriL 20 MG TABLET PO SCH (07:58)
[2021-11-11] MEDS: amLODIPine 5 MG TABLET PO SCH (07:58)
[2021-11-12 04:38] LABS: Basophils # 0.1 K/mcL (0.0-0.2); Basophils % 0.7 %; Eosinophils # 0.2 K/mcL (0.0-0.6); Eosinophils % 1.6 %; Hematocrit 45.8 % (37.5-50.1); Hemoglobin 15.5 g/dL (12.9-16.9); Immature Granulocytes % 3.7 % (0-4); Lymphocytes # 2.4 K/mcL (0.6-4.6); Lymphocytes % 17.4 %; Mean Corpuscular HGB Conc 33.8 g/dL (31.6-35.5); Mean Corpuscular Hemoglobin 29.9 pg (28.0-33.3); Mean Corpuscular Volume 88.2 fL (83.0-100.0); Mean Platelet Volume 10.4 fL (9.4-12.4); Monocytes % 7.2 %; Neutrophils # 9.4 K/mcL (1.6-8.9); Platelet Count 552 K/mcL (140-400); Red Blood Count 5.19 M/mcL (4.19-5.50); Red Cell Distribution Width 12.6 % (11.5-14.5); Segmented Neutrophils % 69.4 %; White Blood Count 13.5 K/mcL (4.3-11.1)
[2021-11-12 04:59] LABS: BUN/Creatinine Ratio 17 (6-26); Blood Urea Nitrogen 23 mg/dL (6-20); Calcium 9.3 mg/dL (8.6-10.3); Carbon Dioxide 22 mEq/L (23-29); Chloride 102 mEq/L (98-107); Glucose 88 mg/dL (70-105); Osmolality,Calculated 277 (280-300); Sodium 132 mEq/L (136-145); eGFR For African Americans > 60 (> 60); eGFR For Non-African Americans 57 (> 60)
[2021-11-12] MEDS: *HR* Heparin 5,000 UNIT/ML VIAL SQ SCH ×2 (05:15→14:39)
[2021-11-12] MEDS: Aspirin Enteric Coated 81 MG Tablet PO SCH (08:01)
[2021-11-12] MEDS: amLODIPine 5 MG TABLET PO SCH (08:01)
[2021-11-12] MEDS: Doxycycline 100 MG CAPSULE PO SCH (08:02)
[2021-11-12] MEDS: lisinopriL 20 MG TABLET PO SCH (08:02)
[2021-11-12] MEDS: Nicotine 21 MG PATCH.TD24 TD SCH (08:02)
[2021-11-12] MEDS: Lactobacillus 1 EACH CAP.SPRINK PO SCH (08:02)
[2021-11-12 16:24] VITALS: PULSE 61; TEMP 97.6; O2SAT 94
[2021-11-12 16:38] VITALS: BP 138/86
[2021-11-12 16:42] LABS: Adenovirus Not Detected (Not Detect); Bordetella Pertussis Not Detected (Not Detect); Chlamydophila pneumoniae Not Detected (Not Detect); Coronavirus 229E Not Detected (Not Detect); Coronavirus HKU1 Not Detected (Not Detect); Coronavirus NL63 Not Detected (Not Detect); Coronavirus OC43 Not Detected (Not Detect); Human Metapneumovirus Not Detected (Not Detect); Human Rhinovirus/Enterovirus Not Detected (Not Detect); Influenza A Subtype 2009 H1 Not Detected (Not Detect); Influenza B Not Detected (Not Detect); Mycoplasma pneumoniae Not Detected (Not Detect); Parainfluenza Virus 1 Not Detected (Not Detect); Parainfluenza Virus 2 Not Detected (Not Detect); Parainfluenza Virus 3 Not Detected (Not Detect); Parainfluenza Virus 4 Not Detected (Not Detect); Respiratory Syncytial Virus Not Detected (Not Detect); SARS-CoV-2 Not Detected (Not Detect)
== END 2021-11-12 18:14 | DRG 872 ==
LOC: SUATTDRO → EMEROOARM 21:15 → 3ANU 21:15 → SUATTDRO 22:46 → 3ANU 23:54 → SUATTDRO 11-08 11:22 → 2NNU 11-08 20:07 → 3ANU 11-09 12:04
PROVIDERS: ADMIT Internal Medicine; ATTEND Internal Medicine